=== PATIENT | male | born 1955 | race Caucasian/White ===

== ENCOUNTER 2017-09-09 19:17 | Inpatient (IN) | payer OTHER ==
[~2017-09-09] VITALS: Ht 185.4 cm; Wt 115.8 kg
[~2017-09-09 19:17] MED LIST: ALPRAZOLAM0.5 MG PO; ANDROGEL1.62% TOP; IBU800 MG PO; METAXALONE800 MG PO; OXYCODONE HCL15 MG PO; VIAGRA100 MG PO
--- NOTE | 2017-09-09 20:06 | ED NECK/BACK PAIN COMPLAINT ---
History of Present Illness General Chief Complaint: Abdominal Pain/Flank Pain Stated Complaint: LEFT FLANK PAIN Source: patient, family, old records Exam Limitations: no limitations Vital Signs & Intake/Output Vital Signs & Intake/Output Vital Signs Date Time Temp Pulse Resp B/P B/P Pulse O2 O2 Flow FiO2 Mean Ox Delivery Rate 09/10 2003 96 Room Air 09/09 1932 98.7 87 20 168/112 97 Room Air Allergies Coded Allergies: asparagus (KIDNEY PAIN 09/09/17) Reconcile Medications Alprazolam 0.5 MG TABLET 1 TAB PO PRN ANXIETY (Reported) Apixaban (Eliquis) 5 MG TABLET 1 TAB PO BID Atrial Fibrilliation Ibuprofen 800 MG TABLET 1 TAB PO TID PRN PAIN/INFLAMMATION (Reported) Metaxalone 800 MG TABLET 1 TAB PO TID MUSCLE SPASMS (Reported) Multiple Vitamin (Multivitamins) 1 EACH TABLET 1 TAB PO DAILY SUPPLEMENT ( Reported) Nebivolol HCl (Bystolic) 10 MG TABLET 1 TAB PO DAILY BP (Reported) Oxycodone HCl 15 MG TABLET 1 TAB PO 4XDP PRN PAIN (Reported) Sildenafil Citrate (Viagra) 100 MG TABLET 1 TAB PO PRN ED (Reported) 1 hour before sexual activity Triage Note: PT TO TRIAGE C/O L FLANK PAIN X3 DAYS. DENIES N/V/ URINARY SYMPTOMS. STATES THOUGHT IT WAS A MUSCLE STRAIN BUT "THE PAIN CONTINUED." IN TRIAGE. PAIN ON PALPATION OF BACK. Triage Nurses Notes Reviewed? yes HPI: 62M PMH chronic lower back pain presenting with acute exacerbation with left sided lower lumbar and flank pain. Pain is worsening when bending over, sitting down, and twisting. He had been working on a deck and bending over for several hours for several days. He denies headache, lightheadedness, vision changes, sore throat, chest pain, palpitations, SOB, abdominal pain, diarrhea, dysuria, hematuria. He has no history of kidney stones. He denies weakness, numbness, paresthesia, or signs of cauda equina. Past History Travel History Traveled to [place] past 21 day No Medical History Any Pertinent Medical History? see below for history Neurological: NONE EENT: NONE Cardiovascular: hypertension Respiratory: NONE Gastrointestinal: NONE Hepatic: NONE Renal: NONE Musculoskeletal: NONE Psychiatric: NONE Endocrine: NONE Blood Disorders: NONE Cancer(s): NONE LEAD CUSTODIAN/Reproductive: NONE Tetanus Vaccine: 03/30/15 Surgical History Surgical History: N Psychosocial History What is your primary language Finnish Tobacco Use: Never used Family History Hx Contributory? No Review of Systems Review of Systems Constitutional: Reports: no symptoms. Eyes: Reports: no symptoms. Ears, Nose, Throat, Mouth: Reports: no symptoms. Respiratory: Reports: no symptoms. Cardiovascular: Reports: no symptoms. Gastrointestinal/Abdominal: Reports: no symptoms. Musculoskeletal: Reports: no symptoms. Skin: Reports: no symptoms. Neurological/Psychological: Reports: no symptoms. All Other Systems: Reviewed and Negative Physical Exam Physical Exam General Appearance: well developed/nourished, mild distress Head: atraumatic Eyes: Bilateral: normal appearance. Ears, Nose, Throat, Mouth: hearing grossly normal, moist mucous membrane Neck: normal inspection, supple, full range of motion Respiratory: normal breath sounds Cardiovascular: regular rate/rhythm Gastrointestinal: soft, non-tender Back: normal inspection, normal range of motion, left lumbar paraspinal muscle tenderness without radiation Extremities: normal range of motion, sensation intact, strength intact Straight Leg Raising: Right: Negative. Left: Negative. Neurologic/Psych: awake, alert, oriented x 3, normal mood/affect Skin: intact, normal color, warm/dry Core Measures CVA/TIA Diagnosis: No Progress Differential Diagnosis: AAA, aortic dissection, C spine injury, carotid dissection, cauda equina syn, herniated disc, myofascial strain, pyelo/UTI, sciatica, spinal cord inj, thoracic outlet syn, T/L spine injury, ureterolithiasis Plan of Care: Orders Procedure Date/time Status PARTIAL THROMBOPLASTIN TIME 09/10 0245 Active EKG 09/09 1950 Active XRY-PORTABLE CHEST XRAY 09/09 1938 Active THYROID STIMULATING HORMONE 09/09 1938 Active TROPONIN LEVEL 09/09 1938 Active LIPASE 09/09 1938 Active HEPATIC FUNCTION PANEL 09/09 1938 Active D-DIMER 09/09 1938 Complete CBC WITHOUT DIFFERENTIAL 09/09 1938 Complete BASIC METABOLIC PANEL 09/09 1938 Active AMYLASE 09/09 1938 Active EKG 09/09 1938 Active URINALYSIS 09/09 1934 Complete Current Medications Sig/Skyla Start time Last Medication Dose Stop Time Status Admin Heparin Sodium 25,000 UNIT Q24H 09/09 2014 UNVr 09/09 (Porcine) 2044 (Heparin) Sodium Chloride 500 ML Laboratory Tests 09/09/172035: Urine Color YEL, Urine Clarity CLEAR, Urine pH 6.0, Ur Specific [place] 1.020, Urine Protein NEG, Urine Ketones NEG, Urine Nitrite NEG, Urine Bilirubin NEG, Urine Urobilinogen 0.2, Ur Leukocyte Esterase NEG, Ur Microscopic SEDIMENT EXAMINED, Urine RBC 1-3, Ur Epithelial Cells RARE, Urine Mucus RARE, Urine Hemoglobin TRACE-INTACT H, Urine Glucose NEG 09/09/172029: Anion Gap 12, Estimated GFR > 60, BUN/Creatinine Ratio 24.4, Glucose 97, Calcium 8.8, Total Bilirubin 0.3, Direct Bilirubin 0.1, AST 24, ALT 29, Alkaline Phosphatase 67, Troponin I < 0.01, Total Protein 7.0, Albumin 3.9, Amylase 91, Lipase 456 H, TSH Pending, D-Dimer High Sensitivty < 200, CBC w Diff NO MAN DIFF REQ, RBC 4.80, MCV 94.6 H, MCH 32.0 H, MCHC 33.8, RDW 12.8, MPV 7.8, Gran % 50.6, Lymphocytes % 37.3, Monocytes % 9.5 H, Eosinophils % 2.2, Basophils % 0.4, Absolute Granulocytes 3.1, Absolute Lymphocytes 2.3, Absolute Monocytes 0.6 , Absolute Eosinophils 0.1, Absolute Basophils 0 09/09/17 2005: TSH Cancelled Found incidentally to be in new onset atrial fibrillation, heparin drip started. Diagnostic Imaging: Viewed by Me: Radiology Read. Discussed w/RAD: Radiology Read. Radiology Impression: PATIENT: PETRONA BURGOS PRESENT AGE: 62 PATIENT ACCOUNT NO: [id number] : 54 LOCATION: [facility] ORDERING PHYSICIAN: Garo Hills MD SERVICE DATE: 09/09/17 EXAM TYPE: RAD - XRY-PORTABLE CHEST XRAY EXAMINATION: XR PORTABLE CHEST CLINICAL INFORMATION: 62-year-old man with chest pain. COMPARISON: 07/26/2016 chest radiograph TECHNIQUE: Portable frontal view of the chest was obtained. FINDINGS: Lung volumes are low. No focal consolidation or overt pulmonary edema is appreciated. Heart size is within the range of normal given portable technique. There are no large pleural effusions. IMPRESSION: No convincing radiographic evidence of an acute cardiopulmonary process. Low lung volumes. DICTATED BY: Kristen Melendez MD DATE/TIME DICTATED:09/09/172125 TOWER OPERATOR:LESTER DATE/TIME TRANSCRIBED:09/09/172125 CONFIDENTIAL, DO NOT COPY WITHOUT APPROPRIATE AUTHORIZATION. <Electronically signed in Other Vendor System> SIGNED BY: Kristen Melendez MD 09/09/172129 Initial ED EKG: AFIB, no ST T wave changes Departure Departure Disposition: STILL A PATIENT Condition: Stable Clinical Impression Primary Impression: New onset atrial fibrillation Secondary Impressions: Low back strain Qualifiers: Encounter type: initial encounter Qualified Code: S39.012A - Strain of muscle, fascia and tendon of lower back, initial encounter Referrals: Brandon EISENBERG,Kalen Dooley (PCP/Family) Departure Forms: Customer Survey General Discharge Information Prescriptions: Current Visit Scripts Apixaban (Eliquis) 1 TAB PO BID #180 TAB Admission Note Spoke With: Kevin [facility] Documentation of Exam: Documentation of any treatments & extenuating circumstances including Concerns Regarding Discharge (functional status, medication knowledge or non-compliance, living conditions, etc.) that warrant an admission rather than observation: NEW ONSET ATRIAL FIBRILLATION WITH LEFT SIDED BACK PAIN, WILL REQUIREADMISSION FOR WORKUP OF AFIB WITH ECHOCARDIOGRAM, RATE CONTROL, HEPARIN DRIP, PAIN CONTROL
[2017-09-09] MEDS ORDERED: METAXALONE800 M1 PO (20:24)
[2017-09-09] MEDS ORDERED: OXYCODONE HCL15 M1 PO (20:25)
[2017-09-09] MEDS ORDERED: IBUPROFEN800 M1 PO (20:25)
[2017-09-09] MEDS ORDERED: PAROXETINE HCL20 M1 (20:26)
[2017-09-09] MEDS ORDERED: ALPRAZOLAM0.5 M4 PO (20:26)
[2017-09-09] MEDS ORDERED: BYSTOLIC10 M1 PO (20:26)
[2017-09-09] MEDS ORDERED: VIAGRA100 M1 PO (20:27)
[2017-09-09] MEDS ORDERED: MULTIVITAMINS1 EAC9 PO (20:28)
[2017-09-09 20:40] LABS: ABSOLUTE BASOPHIL COUNT 0 /CUMM (0.0-0.2); ABSOLUTE EOSINOPHIL COUNT 0.1 /CUMM (0.0-0.7); ABSOLUTE GRANULOCYTE CT 3.1 /CUMM (1.4-6.5); ABSOLUTE LYMPH COUNT 2.3 /CUMM (1.2-3.4); ABSOLUTE MONOCYTE COUNT 0.6 /CUMM (0.10-0.60); BASOPHIL % 0.4 % (0.0-2.0); EOSINOPHIL % 2.2 % (0-5); GRANULOCYTE % 50.6 % (42.2-75.2); HEMATOCRIT 45.5 % (42-52); MEAN CORPUSCULAR HGB CONC 33.8 G/DL (33.0-37.0); MEAN CORPUSCULAR VOLUME 94.6 FL (80.0-94.0); MEAN PLATELET VOLUME 7.8 FL (7.4-10.4); PLATELET COUNT 183 /CUMM (130-400); RBC DISTRIBUTION WIDTH 12.8 % (11.5-14.5); WHITE BLOOD CELL COUNT 6.2 /CUMM (4.8-10.8)
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
--- NOTE | 2017-09-09 21:30 | RADIOLOGY REPORT ---
EXAMINATION: XR PORTABLE CHEST CLINICAL INFORMATION: 62-year-old man with chest pain. COMPARISON: 07/26/2016 chest radiograph TECHNIQUE: Portable frontal view of the chest was obtained. FINDINGS: Lung volumes are low. No focal consolidation or overt pulmonary edema is appreciated. Heart size is within the range of normal given portable technique. There are no large pleural effusions. IMPRESSION: No convincing radiographic evidence of an acute cardiopulmonary process. Low lung volumes.
--- NOTE | 2017-09-09 23:30 | Admission Certification ---
Admission Certification Certification Statement - As attending physician, I certify that at the time of - admission, based on clinical presentation, severity of - symptoms, need for further diagnostic testing and - therapeutic interventions, and risk of adverse outcomes - without in-hospital treatment, in my clinical assessment, - this patient requires an acute hospital stay for a minimum - of two nights or longer. I have also considered psychsocial - factors such as support system, advanced age, financial - issues, cognitive issues, and failed out-patient treatments, - past re-admission history, safety of patient, and lack of - compliance as applicable. Specific rationale supporting this admission is: New onset Atrial fibrillation.
[2017-09-09 23:38] VITALS: BP 130/74
[2017-09-10 03:14] LABS: PTT 41 SEC (25-37)
[2017-09-10 06:27] VITALS: BP 132/84
--- NOTE | 2017-09-10 07:11 | PN- Housestaff ---
Dana EISENBERG,[facility] 09/10/17 0711: Subjective Follow-up For: Devang Lower back pain Tele-Events Since Last Visit: SB/NSR with HR 48-73. No overnight events. Subjective: Patient was seen and examined at bedside. He reports feeling well. His back pain is significantly improved since yesterday. He does not offer any complaints. Review of Systems Constitutional: Reports: no symptoms. Objective Last 24 Hrs of Vital Signs/I&O Vital Signs Date Time Temp Pulse Resp B/P B/P Pulse O2 O2 Flow FiO2 Mean Ox Delivery Rate 09/10 09 54 130/80 09/10 0627 97.4 45 20 132/84 94 09/09 2338 99.1 56 18 130/74 96 09/09 2245 98.3 62 18 138/80 97 Room Air 09/09 2004 96 Room Air 09/09 1933 98.7 87 20 168/112 97 Room Air Intake & Output 09/10 1600 09/10 0800 09/10 0000 Intake Total 120 0 Output Total Balance 120 0 Intake, Oral 120 0 Patient 255 lb Weight Weight Reported by Patient Measurement Method Physical Exam General Appearance: Alert, Oriented X3, Cooperative, No Acute Distress Skin: No Rashes, No Breakdown Skin Temp/Moisture Exam: Warm/Dry Sepsis Skin Exam (color): Normal for Ethnicity HEENT: Atraumatic Cardiovascular: Normal S1, Normal S2, No Murmurs Lungs: Clear to Auscultation, Normal Air Movement Abdomen: Soft, No Tenderness Neurological: Normal Speech Extremities: No Edema Last 24 Hrs of Lab/Rey Results Last 24 Hrs of Labs/Mics: Laboratory Tests 09/10/17 0915: APTT > 120 *H 09/10/17 0830: Troponin I Cancelled 09/10/17 0708: Anion Gap 9, Estimated GFR > 60, BUN/Creatinine Ratio 27.5 H, Hemoglobin A1c 5.5, Troponin I < 0.01, Triglycerides 85, Cholesterol 120, LDL Cholesterol, Calc 60 L, HDL Cholesterol 43, Cholesterol/HDL Ratio 3 09/10/17 0629: Hemoglobin A1c Cancelled, Triglycerides Cancelled, Cholesterol Cancelled, LDL Cholesterol, Calc Cancelled, HDL Cholesterol Cancelled, Cholesterol/HDL Ratio Cancelled 09/10/17 0600: CBC w Diff NO MAN DIFF REQ, RBC 4.32 L, MCV 95.5 H, MCH 32.5 H, MCHC 34.1, RDW 12.9, MPV 8.2, Gran % 45.0, Lymphocytes % 43.2, Monocytes % 7.5, Eosinophils % 3.7, Basophils % 0.6, Absolute Granulocytes 2.3, Absolute Lymphocytes 2.2, Absolute Monocytes 0.4, Absolute Eosinophils 0.2, Absolute Basophils 0 09/10/17 0245: APTT 41 H 09/10/17 0230: Troponin I < 0.01 09/09/172035: Urine Color YEL, Urine Clarity CLEAR, Urine pH 6.0, Ur Specific [place] 1.020, Urine Protein NEG, Urine Ketones NEG, Urine Nitrite NEG, Urine Bilirubin NEG, Urine Urobilinogen 0.2, Ur Leukocyte Esterase NEG, Ur Microscopic SEDIMENT EXAMINED, Urine RBC 1-3, Ur Epithelial Cells RARE, Urine Mucus RARE, Urine Hemoglobin TRACE-INTACT H, Urine Glucose NEG 09/09/172029: Anion Gap 12, Estimated GFR > 60, BUN/Creatinine Ratio 24.4, Glucose 97, Calcium 8.8, Total Bilirubin 0.3, Direct Bilirubin 0.1, AST 24, ALT 29, Alkaline Phosphatase 67, Troponin I < 0.01, Total Protein 7.0, Albumin 3.9, Amylase 91, Lipase 456 H, TSH 2.860, D-Dimer High Sensitivty < 200, CBC w Diff NO MAN DIFF REQ, RBC 4.80, MCV 94.6 H, MCH 32.0 H, MCHC 33.8, RDW 12.8, MPV 7.8, Gran % 50.6, Lymphocytes % 37.3, Monocytes % 9.5 H, Eosinophils % 2.2, Basophils % 0.4 , Absolute Granulocytes 3.1, Absolute Lymphocytes 2.3, Absolute Monocytes 0.6, Absolute Eosinophils 0.1, Absolute Basophils 0, Lyme Disease Antibody 0.23 09/09/172004: TSH Cancelled Assessment/Plan Assessment: 62 years old male with past medical history of hypertension, disc herniation in the neck, and amputation of the right index presented to the emergency room complaining of left lower back pain for the past 3 days prior to admission. He was initially treated with ibuprofen/metaxalone by his PCP which provided him partial relief. Assessment: 1. New Onset Atrial Fibrilliation with conversion to NSR 2. Lower Back Pain 3. History of tick bite 4. History of Hypertension 5. History of Anxiety Plan: * Continue monitoring on telemetry for now. He has maintained his sinus rhythm. * Would likely need additional beta blockers. * Continue IV heparin for now. * Await cardiology input. * His back pain has resolved. He can continue taking NSAIDS/muscle relaxants as needed for pain. * Lyme serology - pending. Unlikely to be Lyme's disease though. * Continuing Xanax 0.5 mg PO BID PRN for anxiety home dose for now * Continuing his Bystolic for hypertension. Morning dose was held due to bradycardia. * Diet: Regular * DVT Prophylaxis: IV Heparin * Code Status: Full Code Problem List: 1. New onset atrial fibrillation Pain Ratin Pain Location: none Pain Goal: Remain pain free Pain Plan: none Tomorrow's Labs & Rationales: BEP, Mg HayesAntoniosaima 09/10/17 1118: Attending MD Review Statement Attending Statement Attending MD Statement: examined this patient, discuss w/resident/PA/JUNIOR ORACLE DBA, agreed w/resident/PA/JUNIOR ORACLE DBA, discussed with family, reviewed EMR data (avail), discussed with nursing, discussed with case mgmt, reviewed images, amended to note Attending Assessment/Plan: 62 o/m with no significant pmh comes with new onset afib, family is concenred about brain aneursysms as patient has family history. Patient denies any focal symptoms. He is sinus rythm now. His cardiac enzymes are negative for VT. Cardiology consult and baseline head CT. Continue anticoagualtion as per cardiology. ECHO. gi/dvt prophylaxis full code.
[2017-09-10 08:39] LABS: ABSOLUTE BASOPHIL COUNT 0 /CUMM (0.0-0.2); ABSOLUTE EOSINOPHIL COUNT 0.2 /CUMM (0.0-0.7); ABSOLUTE GRANULOCYTE CT 2.3 /CUMM (1.4-6.5); ABSOLUTE LYMPH COUNT 2.2 /CUMM (1.2-3.4); ABSOLUTE MONOCYTE COUNT 0.4 /CUMM (0.10-0.60); BASOPHIL % 0.6 % (0.0-2.0); EOSINOPHIL % 3.7 % (0-5); HEMATOCRIT 41.2 % (42-52); MEAN CORPUSCULAR HGB 32.5 PG (27.0-31.0); MEAN CORPUSCULAR HGB CONC 34.1 G/DL (33.0-37.0); MEAN CORPUSCULAR VOLUME 95.5 FL (80.0-94.0); MEAN PLATELET VOLUME 8.2 FL (7.4-10.4); PLATELET COUNT 146 /CUMM (130-400); RBC DISTRIBUTION WIDTH 12.9 % (11.5-14.5); RED BLOOD CELL CT 4.32 /CUMM (4.70-6.10)
[2017-09-10 10:15] LABS: PTT > 120 SEC (25-37)
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
--- NOTE | 2017-09-10 13:29 | CT SCAN REPORT ---
EXAMINATION: CT HEAD WITHOUT CONTRAST CLINICAL INFORMATION: Intracranial aneurysm or bleeding. Family history of aneurysm. COMPARISON: None available. TECHNIQUE: Contiguous axial imaging was performed from the skull base to vertex without intravenous administration of contrast. FINDINGS: There is no intracranial hemorrhage, hydrocephalus, extra-axial surface collection, midline shift, or other herniation pattern. [place] to white matter differentiation is diffusely maintained without evidence of an evolved acute territorial infarct. The basilar cisterns are preserved. No significant soft tissue abnormality. No acute osseous abnormality. The paranasal sinuses and the mastoid air cells are well-aerated. IMPRESSION: No acute intracranial abnormality. No intracranial hemorrhage. A MRA or CTA of the head could be performed to assess for the presence of aneurysms if clinically indicated.
[2017-09-10 14:00] VITALS: BP 128/90
--- NOTE | 2017-09-10 16:45 | Patient Discharge Instructions ---
Discharge Instructions General Discharge Information You were seen/treated for: Atrial Fibrilliation Special Instructions: Please follow up with your PCP and official court reporter ileana one week of discharge. Diet Continue normal diet: Yes Recommended Diet: Heart Healthy Activity Full Activity/No Limits: Yes Acute Coronary Syndrome Inclusion Criteria At DC or during hospital stay patient has or had the following: ACS DIAGNOSIS No Discharge Core Measures Meds if any: Prescribed or Continued at Discharge Meds if any: NOT Prescribed or Continued at Discharge Congestive Heart Failure Inclusion Criteria At DC or during hospital stay patient has or had the following: CHF DIAGNOSIS No Discharge Core Measures Meds if any: Prescribed or Continued at Discharge Meds if any: NOT Prescribed or Continued at Discharge Cerebrovascular accident Inclusion Criteria At DC or during hospital stay patient has or had the following: CVA/TIA Diagnosis No Discharge Core Measures Meds if any: Prescribed or Continued at Discharge Meds if any: NOT Prescribed or Continued at Discharge Venous thromboembolism Inclusion Criteria VTE Diagnosis No VTE Type NONE VTE Confirmed by (Test) NONE Discharge Core Measures - Per Current guidelines, there needs to be overlap - treatment for the first 5 days of Warfarin therapy. - If discharged on Warfarin prior to 5 days of - overlap therapy, the patient will need to be - assessed for post discharge needs including - *Post discharge parental anticoagulation - *Warfarin and/or parental anticoagulation education - *Follow up date to check INR post discharge At least 5 days overlap therapy as Inpatient No Meds if any: Prescribed or Continued at Discharge Note: Overlap Therapy is Warfarin and Anticoagulant Meds if any: NOT Prescribed or Continued at Discharge
[2017-09-10] MEDS ORDERED: ELIQUIS5 M1 PO ×2 (16:46→17:03)
--- NOTE | 2017-09-10 17:08 | Discharge Summary ---
Visit Information Visit Dates Admission Date: 09/09/17 Discharge Date: 09/10/17 Hospital Course Course Attending Physician: Daphne Hayes MD Primary Care Physician: Kalen Taylor MD Hospital Course: Mr Hunt is a 62 years old male with past medical history of hypertension, disc herniation in the neck, and amputation of the right index presented to the emergency room complaining of left lower back pain for the past 3 days prior to admission. He was initially treated with ibuprofen/metaxalone by his PCP which provided him partial relief. Below is a list of conditions he was seen and treated for: New Onset Atrial Fibrilliation On admission patient was found to be in atrial fibrilliation which was a new finding. He had a spontaneous conversion to normal sinus rhythm. He was initially started on IV heparin and admitted to telemetry for monitoring of arrhythmias. Cardiology was consulted. ACS was ruled out with 3 sets of negative troponins and EKGs. He had echocardiogram of which the results are pending and he was advised to follow them up with his talent acquisition manager as outpatient. He was discharged on oral Eliquis. He had a brief but stable hospital course. Lower Back Pain: Patient presented to the ED with chief complains of lower back pain. He initially received lidocaine patch and metaxalone. However, the following morning his symptoms had resolved. He was discharged in stable disposition. History of tick bite: Patient stated that he was bitten by a tick around a week ago. Lyme titres were obtained but the results are still pending. He was advised to follow this up with his PCP. Allergies: Coded Allergies: asparagus (KIDNEY PAIN 09/09/17) Significant Procedures: SERVICE DATE: 09/10/17- EXAM TYPE: CAT - CT HEAD WO IV CONTRAST FINDINGS: There is no intracranial hemorrhage, hydrocephalus, extra-axial surface collection, midline shift, or other herniation pattern. [place] to white matter differentiation is diffusely maintained without evidence of an evolved acute territorial infarct. The basilar cisterns are preserved. No significant soft tissue abnormality. No acute osseous abnormality. The paranasal sinuses and the mastoid air cells are well-aerated. IMPRESSION: No acute intracranial abnormality. No intracranial hemorrhage. A MRA or CTA of the head could be performed to assess for the presence of aneurysms if clinically indicated. SERVICE DATE: 09/09/17 EXAM TYPE: RAD - XRY-PORTABLE CHEST XRAY FINDINGS: Lung volumes are low. No focal consolidation or overt pulmonary edema is appreciated. Heart size is within the range of normal given portable technique. There are no large pleural effusions. IMPRESSION: No convincing radiographic evidence of an acute cardiopulmonary process. Low lung volumes. Disposition Summary Disposition Principal Diagnosis: New Onset Atrial Fibrilliation Lower Back Pain Additional Diagnosis: hypertension Discharge Disposition: home or self care Discharge Instructions General Discharge Information Code Status: Full Code Patient's Diet: Heart Healthy Patient's Activity: As tolerated Follow-Up Instructions/Appts: Please follow up with your PCP and Punch Finisher within one week of discharge. Medications at Discharge Discharge Medications: Continue taking these medications: Metaxalone (Metaxalone) 800 MG TABLET 1 Tablet ORAL THREE TIMES DAILY Qty = 270 Comments: Last Taken:09/10/17 Time:2 PM Ibuprofen (Ibuprofen) 800 MG TABLET 1 Tablet ORAL THREE TIMES DAILY as needed for PAIN/INFLAMMATION Qty = 90 Comments: Last Taken:NOT GIVEN IN HOSPITAL Time: Oxycodone HCl (Oxycodone HCl) 15 MG TABLET 1 Tablet ORAL 4 times daily as needed as needed for PAIN Qty = 180 Comments: Last Taken:09/10/17 Time:4 PM Alprazolam (Alprazolam) 0.5 MG TABLET 1 Tablet ORAL as needed for ANXIETY Qty = 90 Comments: Last Taken:09/10/17 Time:9 AM Nebivolol HCl (Bystolic) 10 MG TABLET 1 Tablet ORAL DAILY Qty = 180 Comments: Last Taken:NOT GIVEN IN THE HOSPITAL Time: Sildenafil Citrate (Viagra) 100 MG TABLET 1 Tablet ORAL as needed for ED Qty = 6 Instructions: 1 hour before sexual activity Comments: Last Taken:NOT GIVEN IN THE HOSPITAL Time: Multiple Vitamin (Multivitamins) 1 EACH TABLET 1 Tablet ORAL DAILY Comments: Last Taken:NOT GIVEN IN THE HOSPITAL Time: Start taking the following new medications: Apixaban (Eliquis) 5 MG TABLET 1 Tablet ORAL TWICE DAILY Qty = 180 No Refills Comments: Last Taken:NOT GIVEN IN THE HOSPITAL Time: Copies To: Brandon EISENBERG,Kalen Dee MD Review Statement Documenting Attending: Daphne Hayes MD Other Findings: Patient in sinus rythm. Cardiology recommendatiosns followed. Patient on anticoagulation as per cardiology. Patient to follow up with cardiology in 1 month after discharge.
== END 2017-09-10 18:15 | DRG 310 ==
LOC: ERH 19:17 → 1NO 21:22 → ERHI 21:22 → CANRESERV 21:32 → ENRESERV 21:32 → ENTRNSPT 22:51 → 1NO 23:10 → CMPTRNSPT 09-10 07:22 → 1NO 09-10 07:23 → ENPENDDIS 09-10 17:03 → 1NO 09-10 18:15
PROVIDERS: Internal Medicine; Pediatrics; Student in an Organized Health Care Education/Training Program
DX: I48.91 Unspecified atrial fibrillation (principal); M50.20 Other cervical disc displacement, unspecified cervical region; I10 Essential (primary) hypertension; F41.9 Anxiety disorder, unspecified; S39.012A Strain of muscle, fascia and tendon of lower back, initial encounter; S30.860A Insect bite (nonvenomous) of lower back and pelvis, initial encounter
CPT/HCPCS: 1NP; 86618; 36592; 71045; 81001; 82436; 93005; 93010; 97110-GO; 97116-GO; 97161-GP; J1644